=== PATIENT | male | born 1945 | race Caucasian/White ===

== ENCOUNTER 2019-09-22 08:24 | Emergency (ER) | payer BC, OTHER ==
[~2019-09-22] VITALS: Ht 188 cm; Wt 103.0 kg
[2019-09-22 08:24] VITALS: BP 64/49
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
--- NOTE | 2019-09-22 08:27 | NUR ---
PT INTUBATED USING ET TUBE SIZE 8 28 @ LIP. POSITIVE COLOR CHANGE W/ EQUAL CHEST RISE AND FALL NOTED.
[2019-09-22] MEDS ORDERED: EPINEPHRINE (1:10,000) SYRINGE 1 MG/10 ML DISP.SYRIN IVP ONE (08:28)
[2019-09-22] MEDS ORDERED: ATROPINE SULFATE 1 MG/10 ML DISP.SYRIN IV ONE (08:28)
[2019-09-22] MEDS ORDERED: SODIUM BICARBONATE SYR 50 MEQ/50 ML DISP.SYRIN IV ONE (08:28)
[2019-09-22] MEDS ORDERED: PROPOFOL 200 MG/20 ML VIAL IV ONE (08:28)
--- NOTE | 2019-09-22 08:30 | NUR ---
PT PULSELESS. CODE BLUE INITIATED. SEE CODE BLUE CHART.
[2019-09-22] MEDS ORDERED: ATROPINE SULFATE 1 MG/10 ML DISP.SYRIN ONE (08:31)
[2019-09-22] MEDS ORDERED: AMIN30LI2 PO (08:57)
[2019-09-22] MEDS ORDERED: ACET-2605 PO (08:57)
[2019-09-22] MEDS ORDERED: NUTR1PAC14 PO (08:57)
[2019-09-22] MEDS ORDERED: ASCO-352 PO (08:57)
[2019-09-22] MEDS ORDERED: CHOL100040 PO (08:57)
[2019-09-22] MEDS ORDERED: NIFE30TA91 PO (08:57)
[2019-09-22] MEDS ORDERED: RIVA10TA PO (08:57)
[2019-09-22] MEDS ORDERED: SENN-261 PO (08:57)
[2019-09-22] MEDS ORDERED: ZINC220C6 PO (08:57)
[2019-09-22] MEDS ORDERED: BISA10SU11 RC (08:57)
[2019-09-22] MEDS ORDERED: MAGN400O6 PO (08:57)
[2019-09-22] MEDS ORDERED: NA P133E RC (08:57)
[2019-09-22] MEDS ORDERED: ACET-868 PO (08:57)
[2019-09-22] MEDS ORDERED: MULT-447 PO (08:57)
[2019-09-22] MEDS ORDERED: DOXY100C2 PO (08:59)
[2019-09-22] MEDS ORDERED: PANTOPRAZOLE 40 MG VIAL IV ONE (09:00)
[2019-09-22] MEDS ORDERED: PANTOPRAZOLE 80 MG in IV NS 0.9% 100 ML IV ONE (09:00)
[2019-09-22] MEDS ORDERED: IV NS 0.9% 1,000 ML BAG IV ONE (09:00)
--- NOTE | 2019-09-22 09:00 | NUR ---
CENTRAL LINE INSERTED BY LEOBARDO MEJIAS. PT PULSE 42. ATROPINE 1 AMP GIVEN.
[2019-09-22 09:02] LABS: BASOPHILS # (AUTO) 0.3 /CMM (0.0-0.2); BASOPHILS % (AUTO) 1.2 % (0.0-2.0); EOSINOPHILS % (AUTO) 0.9 % (0.0-6.0); LYMPHOCYTES # (AUTO) 5.4 /CMM (0.8-4.8); LYMPHOCYTES % (AUTO) 18.3 % (20.0-44.0); MEAN CORPUSCULAR HGB CONC 29 g/dl (31.0-36.0); MEAN CORPUSCULAR VOLUME 98 fL (80-96); MONOCYTES # (AUTO) 0.8 /CMM (0.1-1.30); MONOCYTES % (AUTO) 2.8 % (2.0-12.0); NEUTROPHILS # (AUTO) 22.5 /CMM (1.8-8.9); NEUTROPHILS % (AUTO) 76.8 % (43.0-81.0); PLATELET COUNT (AUTO) 292 /CMM (150-450); WHITE BLOOD COUNT (AUTO) 29.3 K/uL (4.3-11.0)
[2019-09-22 09:03] LABS: RED BLOOD CELL COUNT(AUTO) 1.07 MIL/uL (4.5-6.0)
--- NOTE | 2019-09-22 09:03 | NUR ---
PT PULSELESS. CODE BLUE INITIATED.
[2019-09-22 09:06] LABS: HEMATOCRIT 11 % (39-51)
--- NOTE | 2019-09-22 09:08 | NUR ---
PT PRONOUNCED BY DR MEJIAS. TIME OF 907.
[2019-09-22 09:09] LABS: CALCIUM, SERUM 7.2 mg/dL (8.5-10.1); CREATININE 1.2 mg/dL (0.6-1.3); POTASSIUM 5.5 mmol/L (3.5-5.1)
[2019-09-22 09:15] LABS: BILIRUBIN,DIRECT 0.1 mg/dL (0.0-0.2); BILIRUBIN,TOTAL 0.4 mg/dL (0.2-1.0); TOTAL PROTEIN, SERUM 3.6 g/dL (6.4-8.2)
[2019-09-22 09:16] LABS: ALBUMIN 1.1 g/dL (3.4-5.0)
--- NOTE | 2019-09-22 09:32 | NUR ---
PAGED PRIMARY CARE DR. SÁNCHEZ FOR SIGNING OF CERTIFICATE. IS BEING PAGED.
--- NOTE | 2019-09-22 09:34 | NUR ---
NARCOTICS INVESTIGATOR AT BEDSIDE FOR POST MORTEM CARE
[2019-09-22 10:12] LABS: BAND % (MANUAL) 5 % (0.0-5.0); LYMPHOCYTES % (MANUAL) 20 % (16-48); MONOCYTES % (MANUAL) 2 % (0-11.0); MYELOCYTES % 7 % (0-0); NEUTROPHILS % (MANUAL) 66 (42-76)
--- NOTE | 2019-09-22 10:47 | NUR ---
BODY WHEELED OUT BY [employer] WITH SECURITY TO [place] [facility] [place]
--- NOTE | 2019-09-23 08:47 | NUR ---
CALLED THE NUMBER PROVIDED BY NURSING RAYNE FREDERICK. [phone], NEXT OF KIN EUGENE. PHONE IS DISCONNECTED.
--- NOTE | 2019-09-23 11:06 | NUR ---
SPOKE TO NEXT OF KIN, EUGENE PHONE # [phone]
== END 2019-09-22 11:19 ==
LOC: ER 08:27
DX: I46.9 Cardiac arrest, cause unspecified (principal); K92.2 Gastrointestinal hemorrhage, unspecified; R11.10 Vomiting, unspecified; R00.1 Bradycardia, unspecified; E66.9 Obesity, unspecified; Z68.29 Body mass index [BMI] 29.0-29.9, adult; Z88.6 Allergy status to analgesic agent; Z91.018 Allergy to other foods; Z79.899 Other long term (current) drug therapy
CPT/HCPCS: 31500; 36415; 36430; 36556; 80048; 80076; 83690; 84484; 85025; 85730; 86850; 86921 ×2; 87081; 92950; 93005; 96360; 99285; C1751; C9113; J0171; J0461 ×2; J2704; J3490; J7030 ×2; J7050; P9016 ×2